=== PATIENT | male | born 1940 ===

== ENCOUNTER 2020-01-14 21:20 | Inpatient (IN) ==
[2020-01-15] MEDS ORDERED: ALBUTEROL 2.5 MG/3 ML NEB RESP TX PRN (00:41)
[2020-01-15] MEDS ORDERED: LACTULOSE 20 GM/30 ML UDCUP PO PRN (00:41)
[2020-01-15] MEDS ORDERED: ONDANSETRON 4 MG/2 ML VIAL IV PRN (00:41)
[2020-01-15] MEDS ORDERED: GLUCAGON 1 MG VIAL IM PRN (00:48)
[2020-01-15] MEDS ORDERED: DEXTROSE 50% 25 GM/50 ML VIAL IV PRN (00:48)
[2020-01-15] MEDS ORDERED: ACETAMINOPHEN/CODEINE 300-30 MG TABLET PO PRN ×2 (00:51→01:13)
[2020-01-15] MEDS ORDERED: NOREPINEPHRINE 8 MG in SODIUM CHLORIDE 0.9% 242 ML IV SCH (01:00)
[2020-01-15] MEDS: ALBUTEROL/IPRATROPIUM 3 ML NEB RESP TX SCH ×3 (01:38→12:00)
[2020-01-15] MEDS: PIPERACILLIN/TAZOBACTAM 3,375 MG in SODIUM CHLORIDE 0.9% 100 ML IV SCH ×2 (01:52→09:11)
[2020-01-15] MEDS: SODIUM CHLORIDE 0.9% 1,000 ML IV SCH ×3 (01:52→22:25)
[2020-01-15 04:36] LABS: Basophils % 0.2 % (0.0-0.8); Eosinophils % 0.2 % (0.00-10.9); Hematocrit 40.5 VOL% (42.0-52.0); Hemoglobin 12.8 GM/DL (14.0-18.0); Immature Granulocytes % 1.6 %; Immature Granulocytes Absolute 0.18 #; Lymphocytes % 8.5 % (21.2-54.2); Mean Corpuscular HGB Conc 31.6 GM/DL (32-36); Mean Corpuscular Volume 90.6 FL (87-102); Mean Platelet Volume 10.2 FL (9.6-12.0); Monocytes % 5.5 % (1.7-12.7); Platelet Count 225 T/CUMM (130-400); Red Blood Count 4.47 MC/CUMM (3.8-5.5); Red Cell Distribution Width 13.7 % (9.3-17.3); White Blood Count 11.4 T/CUMM (4-12)
[2020-01-15 05:06] LABS: Calcium 7.6 MG/DL (8.5-10.1); Osmolality,Calculated 281.4 MOS/KG (273-304)
[2020-01-15] MEDS: LEVOTHYROXINE 200 MCG TABLET PO SCH (06:13)
[2020-01-15] MEDS ORDERED: LEVOTHYROXINE 200 MCG TABLET PO SCH (06:30)
[2020-01-15] MEDS ORDERED: metFORMIN 500 MG TABLET PO SCH (08:00)
[2020-01-15] MEDS: PANTOPRAZOLE 40 MG TABLET PO SCH (08:47)
[2020-01-15] MEDS: metFORMIN 500 MG TABLET PO SCH ×2 (08:47→16:22)
[2020-01-15] MEDS: SULFAMETHOX/TRIMETHOPRIM 800-160 MG TABLET PO SCH (08:47)
[2020-01-15] MEDS: DOCUSATE SODIUM 100 MG CAPSULE PO SCH (08:47)
[2020-01-15] MEDS: TERBINAFINE 250 MG TABLET PO SCH (08:47)
[2020-01-15] MEDS: INSULIN REGULAR 100 UNIT/ML SUBCUT SCH ×4 (08:48→20:24)
[2020-01-15] MEDS: CLOPIDOGREL 75 MG TABLET PO SCH (08:48)
[2020-01-15] MEDS: ASPIRIN EC 81 MG TABLET PO SCH (08:48)
[2020-01-15] MEDS: lisinopriL 5 MG TABLET PO SCH (08:48)
[2020-01-15] MEDS ORDERED: CLOPIDOGREL 75 MG TABLET PO SCH (09:00)
[2020-01-15] MEDS ORDERED: ASPIRIN CHEW 81 MG TABLET PO SCH (09:00)
[2020-01-15] MEDS: BUDESONIDE/FORMOTEROL 160-4.5 INHALER 6 GM INH SCH ×2 (09:15→20:58)
[2020-01-15] MEDS ORDERED: AZITHROMYCIN 250 MG TABLET PO ONE (11:53)
[2020-01-15 12:26] LABS: Ferritin 1265.6 ng/ml (26-388)
[2020-01-15] MEDS: cefTRIAXone 1,000 MG in SYRINGE 1 EACH IV SCH (12:40)
[2020-01-15] MEDS: ASCORBIC ACID 500 MG TABLET PO SCH ×2 (12:50→20:58)
[2020-01-15] MEDS: ZINC GLUCONATE 50 MG TABLET PO SCH ×2 (12:50→20:58)
[2020-01-15] MEDS: methylPREDNISolone SOD SUC 40 MG/1 ML VIAL IV SCH ×2 (12:50→20:57)
[2020-01-15] MEDS: guaiFENesin/DM ER 600-30 MG TABLET PO PRN ×2 (12:50→20:58)
[2020-01-15] MEDS ORDERED: POTASSIUM CHLORIDE 20 MEQ TABLET PO ONE (13:06)
[2020-01-15 15:25] LABS: Albumin 1.9 G/DL (3.4-5.0); Bilirubin,Direct 0.33 MG/DL (0.0-0.20); Bilirubin,Indirect 0.7 MG/DL (0.0-1.0); Total Protein 5.4 G/DL (6.4-8.3)
[2020-01-15] MEDS: ENOXAPARIN 40 MG/0.4 ML SYRINGE SUBCUT SCH (15:26)
[2020-01-15] MEDS: GABAPENTIN 300 MG CAPSULE PO SCH (20:58)
[2020-01-15] MEDS: ATORVASTATIN 40 MG TABLET PO SCH (20:58)
[2020-01-16] MEDS: methylPREDNISolone SOD SUC 40 MG/1 ML VIAL IV SCH ×3 (04:40→21:03)
[2020-01-16] MEDS: ALBUTEROL/IPRATROPIUM 3 ML NEB RESP TX SCH ×4 (05:46→18:31)
[2020-01-16] MEDS: LEVOTHYROXINE 200 MCG TABLET PO SCH (06:39)
[2020-01-16] MEDS: INSULIN REGULAR 100 UNIT/ML SUBCUT SCH ×4 (07:44→21:04)
[2020-01-16] MEDS: TERBINAFINE 250 MG TABLET PO SCH (08:20)
[2020-01-16] MEDS: PANTOPRAZOLE 40 MG TABLET PO SCH (08:20)
[2020-01-16] MEDS: ASPIRIN EC 81 MG TABLET PO SCH (08:20)
[2020-01-16] MEDS: ASCORBIC ACID 500 MG TABLET PO SCH ×2 (08:21→21:03)
[2020-01-16] MEDS: CLOPIDOGREL 75 MG TABLET PO SCH (08:21)
[2020-01-16] MEDS: SULFAMETHOX/TRIMETHOPRIM 800-160 MG TABLET PO SCH (08:21)
[2020-01-16] MEDS: metFORMIN 500 MG TABLET PO SCH ×2 (08:21→16:23)
[2020-01-16] MEDS: lisinopriL 5 MG TABLET PO SCH (08:21)
[2020-01-16] MEDS: ZINC GLUCONATE 50 MG TABLET PO SCH ×2 (08:21→21:03)
[2020-01-16] MEDS: SODIUM CHLORIDE 0.9% 1,000 ML IV SCH ×2 (08:22→17:21)
[2020-01-16] MEDS: DOCUSATE SODIUM 100 MG CAPSULE PO SCH (08:22)
[2020-01-16] MEDS: AZITHROMYCIN 250 MG TABLET PO SCH (08:22)
[2020-01-16] MEDS: BUDESONIDE/FORMOTEROL 160-4.5 INHALER 6 GM INH SCH ×2 (08:22→21:04)
[2020-01-16] MEDS: MECLIZINE 25 MG TABLET PO PRN (11:52)
[2020-01-16] MEDS: cefTRIAXone 1,000 MG in SYRINGE 1 EACH IV SCH (11:52)
[2020-01-16] MEDS: ENOXAPARIN 40 MG/0.4 ML SYRINGE SUBCUT SCH (13:06)
[2020-01-16] MEDS: guaiFENesin/DM ER 600-30 MG TABLET PO PRN (16:23)
[2020-01-16] MEDS: GABAPENTIN 300 MG CAPSULE PO SCH (21:03)
[2020-01-16] MEDS: guaiFENesin 200 MG/10 ML UDCUP PO PRN (21:03)
[2020-01-16] MEDS: ATORVASTATIN 40 MG TABLET PO SCH (21:03)
[2020-01-17] MEDS: ALBUTEROL INHALER 18 GM INH SCH ×4 (00:58→18:21)
[2020-01-17] MEDS: guaiFENesin 200 MG/10 ML UDCUP PO PRN ×2 (00:59→08:45)
[2020-01-17 05:38] LABS: Basophils % 0.1 % (0.0-0.8); Hematocrit 38.1 VOL% (42.0-52.0); Immature Granulocytes % 2.6 %; Immature Granulocytes Absolute 0.48 #; Lymphocytes # 0.6 10*3/uL (1.4-4.0); Lymphocytes % 3.1 % (21.2-54.2); Mean Corpuscular HGB Conc 31.5 GM/DL (32-36); Mean Corpuscular Volume 91.1 FL (87-102); Mean Platelet Volume 10.7 FL (9.6-12.0); Monocytes % 3.9 % (1.7-12.7); Neutrophils % 90.3 % (38.7-73.9); Platelet Count 282 T/CUMM (130-400); Red Blood Count 4.18 MC/CUMM (3.8-5.5); Red Cell Distribution Width 14.4 % (9.3-17.3); White Blood Count 18.1 T/CUMM (4-12)
[2020-01-17] MEDS: SODIUM CHLORIDE 0.9% 1,000 ML IV SCH ×2 (06:05→12:59)
[2020-01-17] MEDS: methylPREDNISolone SOD SUC 40 MG/1 ML VIAL IV SCH ×3 (06:05→20:33)
[2020-01-17] MEDS: LEVOTHYROXINE 200 MCG TABLET PO SCH (06:05)
[2020-01-17 06:37] LABS: Albumin 2.1 G/DL (3.4-5.0); Bilirubin,Total 0.6 MG/DL (0.2-1.0); Calcium 8.7 MG/DL (8.5-10.1); Osmolality,Calculated 279.5 MOS/KG (273-304); Total Protein 5.4 G/DL (6.4-8.3)
[2020-01-17 06:44] LABS: Hypochromasia 1+; Lymphocytes 5 % (20-55); Microcytosis Slight; Segmented Neutrophils 93 % (50-85); Total Cells Counted 100
[2020-01-17 06:45] LABS: Ovalocytes Slight; Platelet Estimate Normal; Polychromasia Slight
[2020-01-17] MEDS: INSULIN REGULAR 100 UNIT/ML SUBCUT SCH ×4 (07:36→20:32)
[2020-01-17] MEDS: ASPIRIN EC 81 MG TABLET PO SCH (08:44)
[2020-01-17] MEDS: ASCORBIC ACID 500 MG TABLET PO SCH ×2 (08:44→20:33)
[2020-01-17] MEDS: BENZONATATE 100 MG CAPSULE PO SCH ×3 (08:44→20:33)
[2020-01-17] MEDS: metFORMIN 500 MG TABLET PO SCH ×2 (08:44→16:55)
[2020-01-17] MEDS: ZINC GLUCONATE 50 MG TABLET PO SCH ×2 (08:45→20:33)
[2020-01-17] MEDS: AZITHROMYCIN 250 MG TABLET PO SCH (08:45)
[2020-01-17] MEDS: PANTOPRAZOLE 40 MG TABLET PO SCH (08:45)
[2020-01-17] MEDS: TERBINAFINE 250 MG TABLET PO SCH (08:45)
[2020-01-17] MEDS: SULFAMETHOX/TRIMETHOPRIM 800-160 MG TABLET PO SCH (08:45)
[2020-01-17] MEDS: CLOPIDOGREL 75 MG TABLET PO SCH (08:45)
[2020-01-17] MEDS: lisinopriL 5 MG TABLET PO SCH (08:46)
[2020-01-17] MEDS: BUDESONIDE/FORMOTEROL 160-4.5 INHALER 6 GM INH SCH ×2 (08:46→20:33)
[2020-01-17] MEDS: DOCUSATE SODIUM 100 MG CAPSULE PO SCH (08:46)
[2020-01-17] MEDS: cefTRIAXone 1,000 MG in SYRINGE 1 EACH IV SCH (11:33)
[2020-01-17] MEDS: ENOXAPARIN 40 MG/0.4 ML SYRINGE SUBCUT SCH (12:59)
[2020-01-17] MEDS: ATORVASTATIN 40 MG TABLET PO SCH (20:33)
[2020-01-17] MEDS: GABAPENTIN 300 MG CAPSULE PO SCH (20:33)
[2020-01-18] MEDS: ALBUTEROL INHALER 18 GM INH SCH ×4 (01:41→18:39)
[2020-01-18] MEDS: methylPREDNISolone SOD SUC 40 MG/1 ML VIAL IV SCH ×3 (05:06→20:04)
[2020-01-18] MEDS: SODIUM CHLORIDE 0.9% 1,000 ML IV SCH ×2 (06:13→17:31)
[2020-01-18] MEDS: LEVOTHYROXINE 200 MCG TABLET PO SCH (06:13)
[2020-01-18 06:53] LABS: Basophils % 0.2 % (0.0-0.8); Hematocrit 39.1 VOL% (42.0-52.0); Hemoglobin 12.4 GM/DL (14.0-18.0); Immature Granulocytes % 4.7 %; Lymphocytes # 0.7 10*3/uL (1.4-4.0); Lymphocytes % 3.4 % (21.2-54.2); Mean Corpuscular HGB Conc 31.7 GM/DL (32-36); Mean Corpuscular Volume 91.6 FL (87-102); Mean Platelet Volume 10.9 FL (9.6-12.0); Monocytes % 4.5 % (1.7-12.7); Neutrophils % 87.2 % (38.7-73.9); Platelet Count 313 T/CUMM (130-400); Red Blood Count 4.27 MC/CUMM (3.8-5.5); Red Cell Distribution Width 14.8 % (9.3-17.3); White Blood Count 19.1 T/CUMM (4-12)
[2020-01-18 07:15] LABS: Band Neutrophils 2 % (0-10); Lymphocytes 5 % (20-55); Platelet Estimate Normal; Segmented Neutrophils 85 % (50-85); Total Cells Counted 100
[2020-01-18 07:16] LABS: Anisocytosis 1+; Burr Cells Few; Ovalocytes Few; Poikilocytosis 1+
[2020-01-18 07:28] LABS: Ferritin 669.1 ng/ml (26-388)
[2020-01-18 07:31] LABS: Albumin 2.1 G/DL (3.4-5.0); Bilirubin,Total 1.4 MG/DL (0.2-1.0); Calcium 8.5 MG/DL (8.5-10.1); Osmolality,Calculated 281.4 MOS/KG (273-304); Total Protein 4.7 G/DL (6.4-8.3)
[2020-01-18] MEDS: INSULIN REGULAR 100 UNIT/ML SUBCUT SCH ×4 (07:33→20:00)
[2020-01-18] MEDS: CLOPIDOGREL 75 MG TABLET PO SCH (09:14)
[2020-01-18] MEDS: BENZONATATE 100 MG CAPSULE PO SCH ×3 (09:14→20:03)
[2020-01-18] MEDS: metFORMIN 500 MG TABLET PO SCH (09:15)
[2020-01-18] MEDS: ASCORBIC ACID 500 MG TABLET PO SCH ×2 (09:15→20:03)
[2020-01-18] MEDS: ZINC GLUCONATE 50 MG TABLET PO SCH ×2 (09:15→20:02)
[2020-01-18] MEDS: lisinopriL 5 MG TABLET PO SCH (09:15)
[2020-01-18] MEDS: SULFAMETHOX/TRIMETHOPRIM 800-160 MG TABLET PO SCH (09:15)
[2020-01-18] MEDS: AZITHROMYCIN 250 MG TABLET PO SCH (09:15)
[2020-01-18] MEDS: cefTRIAXone 1,000 MG in SYRINGE 1 EACH IV SCH (09:16)
[2020-01-18] MEDS: DOCUSATE SODIUM 100 MG CAPSULE PO SCH (09:16)
[2020-01-18] MEDS: ASPIRIN EC 81 MG TABLET PO SCH (09:16)
[2020-01-18] MEDS: ENOXAPARIN 40 MG/0.4 ML SYRINGE SUBCUT SCH (09:17)
[2020-01-18] MEDS: TERBINAFINE 250 MG TABLET PO SCH (09:20)
[2020-01-18] MEDS: BUDESONIDE/FORMOTEROL 160-4.5 INHALER 6 GM INH SCH ×2 (09:38→20:10)
[2020-01-18] MEDS: guaiFENesin 200 MG/10 ML UDCUP PO PRN ×2 (12:08→20:04)
[2020-01-18] MEDS: MECLIZINE 25 MG TABLET PO PRN (20:02)
[2020-01-18] MEDS: ATORVASTATIN 40 MG TABLET PO SCH (20:02)
[2020-01-18] MEDS: GABAPENTIN 300 MG CAPSULE PO SCH (20:03)
[2020-01-18] MEDS: guaiFENesin/DM ER 600-30 MG TABLET PO PRN (20:03)
[2020-01-18] MEDS: ACETAMINOPHEN 325 MG TABLET PO PRN (20:03)
[2020-01-19] MEDS: ALBUTEROL INHALER 18 GM INH SCH ×4 (01:00→18:04)
[2020-01-19] MEDS: guaiFENesin 200 MG/10 ML UDCUP PO PRN (04:12)
[2020-01-19] MEDS: ACETAMINOPHEN 325 MG TABLET PO PRN (04:13)
[2020-01-19] MEDS: methylPREDNISolone SOD SUC 40 MG/1 ML VIAL IV SCH ×3 (04:13→23:04)
[2020-01-19] MEDS: SODIUM CHLORIDE 0.9% 1,000 ML IV SCH ×3 (04:15→23:02)
[2020-01-19] MEDS: LEVOTHYROXINE 200 MCG TABLET PO SCH (05:33)
[2020-01-19 06:45] LABS: Basophils % 0.2 % (0.0-0.8); Hematocrit 39.6 VOL% (42.0-52.0); Hemoglobin 12.5 GM/DL (14.0-18.0); Immature Granulocytes % 3.6 %; Lymphocytes # 0.5 10*3/uL (1.4-4.0); Lymphocytes % 2.7 % (21.2-54.2); Mean Corpuscular HGB Conc 31.6 GM/DL (32-36); Mean Corpuscular Volume 91.5 FL (87-102); Mean Platelet Volume 10.8 FL (9.6-12.0); Monocytes % 4.2 % (1.7-12.7); Neutrophils % 89.3 % (38.7-73.9); Platelet Count 301 T/CUMM (130-400); Red Blood Count 4.33 MC/CUMM (3.8-5.5); Red Cell Distribution Width 14.7 % (9.3-17.3); White Blood Count 19.3 T/CUMM (4-12)
[2020-01-19 06:58] LABS: Ferritin 640.9 ng/ml (26-388)
[2020-01-19 07:08] LABS: Albumin 2.3 G/DL (3.4-5.0); Bilirubin,Total 0.5 MG/DL (0.2-1.0); Calcium 8.6 MG/DL (8.5-10.1); Osmolality,Calculated 282.3 MOS/KG (273-304)
[2020-01-19 07:58] LABS: Anisocytosis 2+; Lymphocytes 4 % (20-55); Macrocytosis 2+; Platelet Estimate Normal; Segmented Neutrophils 93 % (50-85); Total Cells Counted 100
[2020-01-19] MEDS: INSULIN REGULAR 100 UNIT/ML SUBCUT SCH ×4 (08:23→23:20)
[2020-01-19] MEDS: DOCUSATE SODIUM 100 MG CAPSULE PO SCH (09:20)
[2020-01-19] MEDS: TERBINAFINE 250 MG TABLET PO SCH (09:20)
[2020-01-19] MEDS: CLOPIDOGREL 75 MG TABLET PO SCH (09:20)
[2020-01-19] MEDS: ZINC GLUCONATE 50 MG TABLET PO SCH ×2 (09:20→23:03)
[2020-01-19] MEDS: BENZONATATE 100 MG CAPSULE PO SCH ×3 (09:20→23:03)
[2020-01-19] MEDS: ASPIRIN EC 81 MG TABLET PO SCH (09:20)
[2020-01-19] MEDS: ASCORBIC ACID 500 MG TABLET PO SCH ×2 (09:21→23:03)
[2020-01-19] MEDS: ENOXAPARIN 40 MG/0.4 ML SYRINGE SUBCUT SCH (09:21)
[2020-01-19] MEDS: cefTRIAXone 1,000 MG in SYRINGE 1 EACH IV SCH (09:21)
[2020-01-19] MEDS: AZITHROMYCIN 250 MG TABLET PO SCH (09:21)
[2020-01-19] MEDS: BUDESONIDE/FORMOTEROL 160-4.5 INHALER 6 GM INH SCH ×2 (09:22→23:04)
[2020-01-19] MEDS: lisinopriL 5 MG TABLET PO SCH (09:22)
[2020-01-19] MEDS: FUROSEMIDE 20 MG TABLET PO SCH (11:38)
[2020-01-19] MEDS: GABAPENTIN 300 MG CAPSULE PO SCH (23:03)
[2020-01-19] MEDS: ZALEPLON 5 MG CAPSULE PO PRN (23:03)
[2020-01-19] MEDS: ATORVASTATIN 40 MG TABLET PO SCH (23:06)
[2020-01-20] MEDS: ALBUTEROL INHALER 18 GM INH SCH ×3 (06:07→12:33)
[2020-01-20] MEDS: LEVOTHYROXINE 200 MCG TABLET PO SCH (06:29)
[2020-01-20] MEDS: methylPREDNISolone SOD SUC 40 MG/1 ML VIAL IV SCH ×3 (06:29→21:05)
[2020-01-20 06:32] LABS: Basophils % 0.2 % (0.0-0.8); Hemoglobin 13.1 GM/DL (14.0-18.0); Immature Granulocytes % 3.3 %; Immature Granulocytes Absolute 0.59 #; Lymphocytes # 0.5 10*3/uL (1.4-4.0); Lymphocytes % 2.5 % (21.2-54.2); Mean Corpuscular Volume 91.5 FL (87-102); Mean Platelet Volume 10.6 FL (9.6-12.0); Monocytes % 4.2 % (1.7-12.7); Neutrophils % 89.8 % (38.7-73.9); Platelet Count 333 T/CUMM (130-400); Red Blood Count 4.48 MC/CUMM (3.8-5.5); Red Cell Distribution Width 14.8 % (9.3-17.3)
[2020-01-20 06:53] LABS: Band Neutrophils 3 % (0-10); Lymphocytes 3 % (20-55); Segmented Neutrophils 88 % (50-85); Total Cells Counted 100
[2020-01-20 06:54] LABS: Anisocytosis 1+; Basophilic Stippling Slight; Ovalocytes Few; Platelet Estimate Normal
[2020-01-20 06:58] LABS: Ferritin 645.3 ng/ml (26-388)
[2020-01-20 07:12] LABS: Albumin 2.4 G/DL (3.4-5.0); Bilirubin,Total 0.8 MG/DL (0.2-1.0); Calcium 8.6 MG/DL (8.5-10.1); Osmolality,Calculated 280.4 MOS/KG (273-304); Total Protein 5.1 G/DL (6.4-8.3)
[2020-01-20] MEDS: SODIUM CHLORIDE 0.9% 1,000 ML IV SCH ×3 (08:46→22:07)
[2020-01-20] MEDS: INSULIN REGULAR 100 UNIT/ML SUBCUT SCH ×4 (08:47→22:02)
[2020-01-20] MEDS: ASPIRIN EC 81 MG TABLET PO SCH (10:29)
[2020-01-20] MEDS: BUDESONIDE/FORMOTEROL 160-4.5 INHALER 6 GM INH SCH ×2 (10:30→21:05)
[2020-01-20] MEDS: lisinopriL 5 MG TABLET PO SCH (10:30)
[2020-01-20] MEDS: cefTRIAXone 1,000 MG in SYRINGE 1 EACH IV SCH (10:30)
[2020-01-20] MEDS: TERBINAFINE 250 MG TABLET PO SCH (10:30)
[2020-01-20] MEDS: DOCUSATE SODIUM 100 MG CAPSULE PO SCH (10:30)
[2020-01-20] MEDS: CLOPIDOGREL 75 MG TABLET PO SCH (10:30)
[2020-01-20] MEDS: FUROSEMIDE 20 MG TABLET PO SCH (10:30)
[2020-01-20] MEDS: ENOXAPARIN 40 MG/0.4 ML SYRINGE SUBCUT SCH (10:30)
[2020-01-20] MEDS: BENZONATATE 100 MG CAPSULE PO SCH ×3 (10:30→21:05)
[2020-01-20] MEDS: ASCORBIC ACID 500 MG TABLET PO SCH ×2 (10:31→21:05)
[2020-01-20] MEDS: ZINC GLUCONATE 50 MG TABLET PO SCH ×2 (10:31→21:05)
[2020-01-20] MEDS ORDERED: SODIUM POLYSTYRENE SULFATE 15 GM/60 ML BOTTLE PO STA (12:25)
[2020-01-20] MEDS ORDERED: TUBERCULIN SKIN TEST 0.1 ML SYRINGE INTRADERM ONE (13:00)
[2020-01-20] MEDS: GABAPENTIN 300 MG CAPSULE PO SCH (21:05)
[2020-01-20] MEDS: ATORVASTATIN 40 MG TABLET PO SCH (21:05)
[2020-01-21] MEDS: methylPREDNISolone SOD SUC 40 MG/1 ML VIAL IV SCH ×3 (05:10→21:06)
[2020-01-21 06:12] LABS: Basophils % 0.3 % (0.0-0.8); Hematocrit 42.4 VOL% (42.0-52.0); Hemoglobin 13.4 GM/DL (14.0-18.0); Immature Granulocytes % 4.3 %; Immature Granulocytes Absolute 0.62 #; Lymphocytes # 0.4 10*3/uL (1.4-4.0); Lymphocytes % 2.5 % (21.2-54.2); Mean Corpuscular HGB Conc 31.6 GM/DL (32-36); Mean Corpuscular Volume 91.2 FL (87-102); Mean Platelet Volume 10.3 FL (9.6-12.0); Monocytes % 4.1 % (1.7-12.7); Neutrophils % 88.8 % (38.7-73.9); Platelet Count 288 T/CUMM (130-400); Red Blood Count 4.65 MC/CUMM (3.8-5.5); Red Cell Distribution Width 15.1 % (9.3-17.3); White Blood Count 14.6 T/CUMM (4-12)
[2020-01-21 06:35] LABS: Lymphocytes 4 % (20-55); Platelet Estimate Adequate; Segmented Neutrophils 93 % (50-85); Total Cells Counted 100
[2020-01-21 06:57] LABS: Albumin 2.3 G/DL (3.4-5.0); Calcium 8.5 MG/DL (8.5-10.1); Ferritin 622.5 ng/ml (26-388); Osmolality,Calculated 276.7 MOS/KG (273-304); Total Protein 5.5 G/DL (6.4-8.3)
[2020-01-21] MEDS: lisinopriL 5 MG TABLET PO SCH (08:53)
[2020-01-21] MEDS: CLOPIDOGREL 75 MG TABLET PO SCH (08:53)
[2020-01-21] MEDS: BENZONATATE 100 MG CAPSULE PO SCH ×3 (08:53→21:10)
[2020-01-21] MEDS: TERBINAFINE 250 MG TABLET PO SCH (08:53)
[2020-01-21] MEDS: DOCUSATE SODIUM 100 MG CAPSULE PO SCH (08:54)
[2020-01-21] MEDS: FUROSEMIDE 20 MG TABLET PO SCH (08:54)
[2020-01-21] MEDS: ENOXAPARIN 40 MG/0.4 ML SYRINGE SUBCUT SCH (08:54)
[2020-01-21] MEDS: ASCORBIC ACID 500 MG TABLET PO SCH ×2 (08:54→21:10)
[2020-01-21] MEDS: ASPIRIN EC 81 MG TABLET PO SCH (08:54)
[2020-01-21] MEDS: LEVOTHYROXINE 200 MCG TABLET PO SCH (08:54)
[2020-01-21] MEDS: SODIUM CHLORIDE 0.9% 1,000 ML IV SCH ×2 (09:00→17:47)
[2020-01-21] MEDS: cefTRIAXone 1,000 MG in SYRINGE 1 EACH IV SCH (09:07)
[2020-01-21] MEDS: INSULIN REGULAR 100 UNIT/ML SUBCUT SCH ×4 (09:08→21:29)
[2020-01-21 09:52] LABS: Basophils % 0.2 % (0.0-0.8); Hematocrit 40.3 VOL% (42.0-52.0); Immature Granulocytes Absolute 0.62 #; Lymphocytes # 0.3 10*3/uL (1.4-4.0); Lymphocytes % 1.9 % (21.2-54.2); Mean Corpuscular HGB Conc 32.3 GM/DL (32-36); Mean Corpuscular Volume 89.2 FL (87-102); Mean Platelet Volume 10.2 FL (9.6-12.0); Monocytes % 4.6 % (1.7-12.7); Neutrophils % 89.3 % (38.7-73.9); Platelet Count 280 T/CUMM (130-400); Red Blood Count 4.52 MC/CUMM (3.8-5.5); Red Cell Distribution Width 14.7 % (9.3-17.3); White Blood Count 15.5 T/CUMM (4-12)
[2020-01-21] MEDS: ALBUTEROL INHALER 18 GM INH SCH ×4 (10:05→19:00)
[2020-01-21] MEDS: ZINC GLUCONATE 50 MG TABLET PO SCH ×2 (10:08→21:10)
[2020-01-21] MEDS: BUDESONIDE/FORMOTEROL 160-4.5 INHALER 6 GM INH SCH ×2 (10:09→21:10)
[2020-01-21 10:14] LABS: Calcium 8.5 MG/DL (8.5-10.1); Osmolality,Calculated 278.5 MOS/KG (273-304)
[2020-01-21 10:16] LABS: Band Neutrophils 1 % (0-10); Hypochromasia 1+; Lymphocytes 3 % (20-55); Platelet Estimate Adequate; Segmented Neutrophils 94 % (50-85); Total Cells Counted 100
[2020-01-21] MEDS: guaiFENesin 200 MG/10 ML UDCUP PO PRN (14:38)
[2020-01-21] MEDS ORDERED: MAGNESIUM SULF RIDER 4 GM in PREMIX 1 EACH IV PRN (17:16)
[2020-01-21] MEDS ORDERED: MAGNESIUM SULF RIDER 2 GM in PREMIX 1 EACH IV PRN (17:16)
[2020-01-21] MEDS: ACETAMINOPHEN 325 MG TABLET PO PRN (17:18)
[2020-01-21] MEDS: GABAPENTIN 300 MG CAPSULE PO SCH (21:09)
[2020-01-21] MEDS: ATORVASTATIN 40 MG TABLET PO SCH (21:09)
[2020-01-21] MEDS: ZALEPLON 5 MG CAPSULE PO PRN (21:10)
[2020-01-22] MEDS: SODIUM CHLORIDE 0.9% 1,000 ML IV SCH ×2 (03:47→14:19)
[2020-01-22 05:13] LABS: Basophils % 0.3 % (0.0-0.8); Hematocrit 38.1 VOL% (42.0-52.0); Hemoglobin 12.2 GM/DL (14.0-18.0); Immature Granulocytes % 5.1 %; Immature Granulocytes Absolute 0.57 #; Lymphocytes # 0.3 10*3/uL (1.4-4.0); Mean Corpuscular Volume 90.7 FL (87-102); Mean Platelet Volume 10.5 FL (9.6-12.0); Monocytes % 4.1 % (1.7-12.7); Neutrophils % 87.5 % (38.7-73.9); Platelet Count 252 T/CUMM (130-400); Red Cell Distribution Width 14.8 % (9.3-17.3); White Blood Count 11.3 T/CUMM (4-12)
[2020-01-22] MEDS: methylPREDNISolone SOD SUC 40 MG/1 ML VIAL IV SCH ×2 (05:30→14:20)
[2020-01-22 05:36] LABS: Hypochromasia 1+; Lymphocytes 4 % (20-55); Ovalocytes Slight; Platelet Estimate Adequate; Segmented Neutrophils 91 % (50-85); Total Cells Counted 100
[2020-01-22 05:40] LABS: Calcium 8.4 MG/DL (8.5-10.1); Osmolality,Calculated 282.3 MOS/KG (273-304)
[2020-01-22] MEDS: LEVOTHYROXINE 200 MCG TABLET PO SCH (06:02)
[2020-01-22] MEDS: INSULIN REGULAR 100 UNIT/ML SUBCUT SCH ×2 (07:58→11:21)
[2020-01-22] MEDS: ALBUTEROL INHALER 18 GM INH SCH ×3 (07:58→14:20)
[2020-01-22] MEDS: CLOPIDOGREL 75 MG TABLET PO SCH (09:53)
[2020-01-22] MEDS: DOCUSATE SODIUM 100 MG CAPSULE PO SCH (09:53)
[2020-01-22] MEDS: ENOXAPARIN 40 MG/0.4 ML SYRINGE SUBCUT SCH (09:53)
[2020-01-22] MEDS: lisinopriL 5 MG TABLET PO SCH (09:53)
[2020-01-22] MEDS: TERBINAFINE 250 MG TABLET PO SCH (09:53)
[2020-01-22] MEDS: BENZONATATE 100 MG CAPSULE PO SCH (09:53)
[2020-01-22] MEDS: ASCORBIC ACID 500 MG TABLET PO SCH (09:53)
[2020-01-22] MEDS: FUROSEMIDE 20 MG TABLET PO SCH (09:53)
[2020-01-22] MEDS: ASPIRIN EC 81 MG TABLET PO SCH (09:53)
[2020-01-22] MEDS: BUDESONIDE/FORMOTEROL 160-4.5 INHALER 6 GM INH SCH (09:54)
[2020-01-22 12:49] VITALS: BP 125/80
== END 2020-01-22 13:34 | disposition swing bed (61) | DRG 193 ==
LOC: N.ICU 01-15 00:07 → SUATTDRO 01-15 00:07 → N.2E 01-15 14:52 → N.4E 01-20 13:49
PROVIDERS: ADMIT Internal Medicine Cardiovascular Disease; ATTEND Internal Medicine